=== PATIENT | male | born 1965 | race Hispanic/Latino ===

== ENCOUNTER 2024-01-27 05:24 | Emergency (ER) | payer BC ==
[~2024-01-27] VITALS: Ht 165.1 cm; Wt 76.2 kg
[2024-01-27 05:42] VITALS: TEMP 97
[2024-01-27 05:50] LABS: BASOPHILS # (AUTO) 0.05 K/uL (0.00-0.20); BASOPHILS % (AUTO) 0.4 % (0.0-5.0); EOSINOPHILS # (AUTO) 0.08 K/uL (0.00-0.70); EOSINOPHILS % (AUTO) 0.7 % (0.0-8.0); IMMATURE GRANULOCYTE ABSOLUTE 0.09 K/uL (0-1); LYMPHOCYTES # (AUTO) 1.3 K/uL (1.0-4.8); LYMPHOCYTES % (AUTO) 11.2 % (21.0-51.0); MEAN CORPUSCULAR HEMOGLOBIN 28.4 pg (27.0-33.0); MEAN CORPUSCULAR HGB CONC 33.3 g/dL (32.0-36.0); MEAN CORPUSCULAR VOLUME 85.1 fL (79-99); MONOCYTES # (AUTO) 0.6 K/uL (0.1-1.0); MONOCYTES % (AUTO) 5.1 % (3.0-13.0); NEUTROPHILS # (AUTO) 9.4 K/uL (1.8-7.7); NEUTROPHILS % (AUTO) 81.8 % (40.0-77.0); PLATELET COUNT (AUTO) 380 K/uL (130-400); RED BLOOD CELL COUNT(AUTO) 2.82 MIL/uL (4.50-6.20); RED CELL DISTRIBUTION WIDTH 13.3 % (11.0-15.5); WHITE BLOOD COUNT (AUTO) 11.5 K/uL (4.8-10.8)
[2024-01-27 06:01] LABS: CREATININE 1.2 mg/dL (0.5-1.3); POTASSIUM 3.8 mmol/L (3.5-5.1)
[2024-01-27] MEDS: LACTATED RINGERS IV ONE (06:11)
[2024-01-27] MEDS: CLINDAMYCIN IVPB 300MG/50ML 50 ML IV SCH (06:13)
[2024-01-27] MEDS ORDERED: INDO-15 PO (06:23)
[2024-01-27] MEDS ORDERED: SULF1TAB42 PO (06:23)
[2024-01-27] MEDS ORDERED: CLIN-141 PO (08:24)
[2024-01-27 08:34] VITALS: BP 102/57; PULSE 72; RESP 16; O2SAT 98
== END 2024-01-27 09:04 | disposition home or self-care (01) ==
LOC: EDH 05:24
DX: A08.4 Viral intestinal infection, unspecified (principal); E86.0 Dehydration; L98.498 Non-pressure chronic ulcer of skin of other sites with other specified severity
CPT/HCPCS: 99284; 96365; 71045; 96366; 80048; 85025; 83605; 36415; J7120; J3490